=== PATIENT | male | born 1990 | race African-American/Black ===

== ENCOUNTER 2017-05-26 21:14 | Emergency (ER) | payer MEDICAID ==
[2017-05-26] MEDS ORDERED: ONDANSETRON 4 MG/2 ML VIAL IVP ONE (21:16)
[2017-05-26] MEDS ORDERED: NS 1,000 ML IV ONE (21:16)
[2017-05-26] MEDS ORDERED: HYDROmorphONE/DILAUDID 1 MG/ML SYR IVP ONE ×2 (21:16→22:41)
--- NOTE | 2017-05-26 21:19 | EDPHY ---
H & P HPI/ROS: CHIEF COMPLAINT: Abdominal pain HISTORY OF PRESENT ILLNESS: The patient is a 27-year-old man who comes to the emergency department complaining of right lower quadrant pain and vomiting. His pain began this morning it has gotten gradually worse. No fevers. No diarrhea. He had something similar about 2 years ago that resolved spontaneously. He denies any trauma. REVIEW OF SYSTEMS: Constitutional: denies: chills, fever, recent illness, recent injury EENTM: denies: blurred vision, double vision, nose congestion Respiratory: denies: cough, shortness of breath Cardiac: denies: chest pain, irregular heart rate, lightheadedness, palpitations Gastrointestinal/Abdominal: See HPI Genitourinary: denies: dysuria, frequency, hematuria, pain Musculoskeletal: denies: joint pain, muscle pain Skin: denies: lesions, rash, jaundice, bruising Neurological: denies: headache, numbness, paresthesia, tingling, dizziness, weakness Hematologic/Lymphatic: denies: blood clots, easy bleeding, easy bruising Immunologic/allergic: denies: HIV/AIDS, transplant EXAM: GENERAL: Well-appearing, holding a bag of vomit in no acute distress. HEAD: Atraumatic, normocephalic. EYES: Pupils equal round and reactive to light, extraocular movements intact, sclera anicteric, conjunctiva are normal. ENT: TMs normal, nares patent, oropharynx clear without exudates. Moist mucous membranes. NECK: Normal range of motion, supple without lymphadenopathy or JVD. LUNGS: Breath sounds clear to auscultation bilaterally and equal. No wheezes rales or rhonchi. HEART: Regular rate and rhythm without murmurs, rubs or gallops. ABDOMEN: Right lower quadrant tenderness BACK: No CVA tenderness, no spinal tenderness, step-offs or deformities EXTREMITIES: Normal range of motion, no pitting or edema. No clubbing or cyanosis. NEUROLOGICAL: Cranial nerves II through XII grossly intact. Normal speech, normal gait. 5/5 strength, normal movement in all extremities, normal sensation PSYCH: Normal mood, normal affect. SKIN: Warm, dry, normal turgor, no visible rashes or lesions. Source: Patient Exam Limitations: No limitations - Medical/Surgical History Hx Asthma: No Hx Chronic Respiratory Disease: No Hx Diabetes: No Hx Cardiac Disease: No Hx Renal Disease: No Hx Cirrhosis: No Hx Alcoholism: No - Family History Significant Family History: No pertinent family hx - Social History Alcohol Use: Sober Drug Use: None Constitutional: Initial Vital Signs Temperature (C) 36.5 C 05/26/17 21:18 Heart Rate 102 H 05/26/17 21:18 Respiratory Rate 20 05/26/17 21:18 Blood Pressure 167/119 H 05/26/17 21:18 O2 Sat (%) 98 05/26/17 21:18 O2 Delivery Mode Room Air Allergies/Adverse Reactions: No Known Allergies Allergy (Unverified 05/26/17 21:18) Medical Decision Making - Diagnostics Imaging: Discussed imaging studies w/ call center assistant Radiologist ED Course/Re-evaluation: 10:50 p.m. the patient is feeling better but did require 2 doses of Dilaudid. We discussed his CT and lab results which are very reassuring. He has very minimal fat therefore is difficult to sees appendix. We will have him return in 12-24 hours for repeat evaluation. Patient and mom agree with this plan. His repeat abdominal exam is benign. We did discuss the very minimal amount of blood in his urine. A possible that he passed a kidney stone. He states that the pain does occasionally radiate down to his groin. He denies testicular pain. Differential Diagnosis: Partial list of the Differential diagnosis considered include but were not limited to; appendicitis, kidney stone, urinary tract infection and although unlikely based on the history and physical exam, I also considered hernia, diverticulitis, biliary disease, peptic ulcer disease. I discussed these differential diagnoses and the plan with the patient as well as the usual and expected course. The patient understands that the diagnosis is provisional and that in medicine we are not always correct and that further workup is often warranted. Usual and customary warnings were given. All of the patient's questions were answered. The patient was instructed to return to the emergency department should the symptoms at all worsen or return, otherwise to followup with the physician as we discussed. - Data Points Laboratory Results: Laboratory Results 05/26/17 21:25 05/26/17 21:25 Medications Given: Discontinued Medications Hydromorphone HCl (Dilaudid) 1 mg IVP EDNOW ONE Stop: 05/26/17 21:17 Last Admin: 05/26/17 21:29 Dose: 1 mg Hydromorphone HCl (Dilaudid) 1 mg IVP EDNOW ONE Stop: 05/26/17 22:42 Last Admin: 05/26/17 22:43 Dose: 1 mg Sodium Chloride (Ns) 1,000 mls @ 0 mls/hr IV EDNOW ONE; Wide Open PRN Reason: Protocol Stop: 05/26/17 21:17 Last Admin: 05/26/17 21:29 Dose: 1,000 mls Ondansetron HCl (Zofran) 4 mg IVP EDNOW ONE Stop: 05/26/17 21:17 Last Admin: 05/26/17 21:29 Dose: 4 mg Ondansetron HCl (Zofran Odt 4 Mg Prepack#2) 1 btl TAKEHOME EDNOW ONE Stop: 05/26/17 23:02 Last Admin: 05/26/17 23:26 Dose: 1 btl Oxycodone/Acetaminophen (Percocet 5/325mg Prepack#4) 1 btl TAKEHOME EDNOW ONE Stop: 05/26/17 23:02 Last Admin: 05/26/17 23:27 Dose: 1 btl Departure - Departure Disposition: Home, Routine, Self-Care Clinical Impression: Abdominal pain Qualifiers: Abdominal location: right lower quadrant Qualified Code(s): R10.31 - Right lower quadrant pain Condition: Fair Instructions: Oxycodone/Acetaminophen (By mouth), Ondansetron (By mouth), Acute Abdominal Pain (ED) Referrals: BERTRAM MARCOS [Other] - As per Instructions ED,PHYSICIAN DION [Medical Doctor] - 1 day without fail
[2017-05-26] MEDS ORDERED: IOPAMIDOL (ISOVUE-300) 100 ML BTL ONE (21:20)
[2017-05-26 21:28] VITALS: RESP 20
[2017-05-26 21:51] LABS: ALANINE AMINOTRANSFERASE 71 IU/L (21-72); ALBUMIN 4.1 g/dL (3.5-5.0); ALKALINE PHOSPHATASE 88 IU/L (38-126); ANION GAP 14 mEq/L (8-16); ASPARTATE AMINOTRANSFERASE 84 IU/L (17-59); BILIRUBIN,TOTAL 0.4 mg/dL (0.1-1.4); BILIRUBIN-CONJUGATED 0.3 mg/dL (0.0-0.5); BILIRUBIN-UNCONJUGATED 0.1 mg/dL (0.0-1.1); CALCIUM 9.5 mg/dL (8.5-10.4); CARBON DIOXIDE 22 mEq/l (22-31); CHLORIDE 105 mEq/L (97-110); CREATININE 0.9 mg/dL (0.7-1.3); GLOMERULAR FILTRATION RATE > 60; GLUCOSE 87 mg/dL (70-100); POTASSIUM 4.3 mEq/L (3.5-5.2); SODIUM 141 mEq/L (134-144); TOTAL PROTEIN 8.9 g/dL (6.3-8.2)
[2017-05-26 22:01] LABS: ADD MORPH? NO; ADD SCAN? YES; FRAGMENT RBC FLAG 0 (0-99); HEMATOCRIT 41.3 % (40.0-51.0); HEMOGLOBIN 14.4 g/dL (13.7-17.5); LEFT SHIFT FLG 0 (0-99); LIPEMIA HEMOLYSIS FLAG 90 (0-99); MEAN CELL HEMOGLOBIN CONCENTR. 34.9 g/dL (32.4-36.7); MEAN CELL VOLUME 97.6 fL (81.5-99.8); MEAN PLATELET VOLUME 11.3 fL (8.7-11.7); PLATELET CLUMPS FLAG 20 (0-99); PLATELET COUNT 163 10^3/uL (150-400); RED BLOOD CELL COUNT 4.23 10^6/uL (4.40-6.38); RED CELL DISTRIBUTION WIDTH 12.4 % (11.5-15.2)
[2017-05-26 22:07] LABS: ATYPICAL LYMPHOCYTE FLAG 130 (0-99)
[2017-05-26 22:11] LABS: ADD DIFF? YES; SCAN POSITIVE
[2017-05-26 22:12] LABS: COLOR YELLOW; LEUKOCYTE ESTERASE,URINE NEGATIVE (NEGATIVE); NITRITE,URINE NEGATIVE (NEGATIVE)
[2017-05-26 22:14] LABS: PLATELET ESTIMATE ADEQUATE (ADEQ)
[2017-05-26 22:21] LABS: MUCUS TRACE /lpf (NONE-1+)
[2017-05-26] MEDS ORDERED: HYDROmorphONE/DILAUDID 1 MG/ML SYR ONE (22:40)
[2017-05-26] MEDS ORDERED: ONDANSETRON 4MG PREPACK#2 BTL TAKEHOME ONE (23:01)
[2017-05-26] MEDS ORDERED: OXYCODONE/APAP 5/325MG PREPACK#4 BTL TAKEHOME ONE (23:01)
[2017-05-26 23:31] VITALS: BP 174/138; PULSE 88; TEMP 97.5; O2SAT 94
== END 2017-05-26 23:31 | disposition home or self-care (01) ==
LOC: EDUNIT#
DX: R10.31 Right lower quadrant pain (principal); E86.9 Volume depletion, unspecified
CPT/HCPCS: 96374; J1170; J2405; Q9967